=== PATIENT | male | born 2000 | race Caucasian/White ===

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

== ENCOUNTER 2019-03-08 17:24 | Emergency (ER) | payer OTHER ==
[2019-03-08] MEDS ORDERED: Sodium Chloride 0.9% 1000 ML 1,000 ML IV STA (17:59)
[2019-03-08] MEDS ORDERED: TORAdol 30 mg Injection IV ONE (17:59)
--- NOTE | 2019-03-08 18:04 | ERPHSYRPT ---
- History of Present Illness Historian: patient Exam Limitations: no limitations Patient Subjective Stated Complaint: pt here for abd pain for a couple days not , not not eating well, no fever, no n/v, states burning with urination Triage Nursing Assessment: pt alert, walked in, resp easy, skin w/d/p, abd soft, tender to center of abd, move all ext well, no edema Timing/Duration: day(s) (4) Activities at Onset: none Quality: burning, sharpness Abdominal Pain Onset Location: suprapubic Pain Radiation: no radiation Severity of Pain-Max: moderate Severity of Pain-Current: moderate Modifying Factors: Improves With: nothing Associated Symptoms: denies symptoms Previous symptoms: no prior history Hx Tetanus, Diphtheria Vaccination/Date Given: Yes Hx Influenza Vaccination/Date Given: No Hx Pneumococcal Vaccination/Date Given: No Immunizations Up to Date: Yes <TURNER FREED - Last Filed: 03/08/19 19:18> <ELIZABETH MCKNIGHT - Last Filed: 03/08/19 19:44> - History of Present Illness Time Seen by Provider: 03/08/19 17:57 Physician History: Pt started c/o suprapubic pain 4 days ago, difficulty urinating, denies bloody urine or fever, chills, no nausea, vomiting, diarrhea, denies penile discharge, but mentioned, that his left testicle was painful 2 days ago for about 15 minutes, denies any injury, swelling, or current pain. (TURNER FREED) Allergies/Adverse Reactions: No Known Drug Allergies Allergy (Unverified 04/25/17 04:24) Home Medications: Buspirone HCl mg PO 04/25/17 [History] Fluoxetine HCl [Prozac] mg PO 04/25/17 [History] - Review of Systems Constitutional: No Symptoms Ears, Nose, & Throat: No Symptoms Respiratory: No Symptoms Cardiac: No Symptoms Abdominal/Gastrointestinal: Abdominal Pain, No Nausea, No Vomiting, No Diarrhea Genitourinary Symptoms: Dysuria Musculoskeletal: No Symptoms Skin: No Symptoms Neurological: No Symptoms All Other Systems: Reviewed and Negative <TURNER FREED - Last Filed: 03/08/19 19:18> - Past Medical History Pertinent Past Medical History: No Psycho-Social History: Depression Other Medical History: depression - Past Surgical History Past Surgical History: No - Social History Smoking Status: Never smoker Exposure to second hand smoke: Yes Drug Use: marijuana Patient Lives Alone: No <TURNER FREED - Last Filed: 03/08/19 19:18> - Physical Exam General Appearance: no apparent distress Ears, Nose, Throat Exam: normal ENT inspection, moist mucous membranes Neck Exam: normal inspection, non-tender Respiratory Exam: normal breath sounds, lungs clear Cardiovascular Exam: regular rate/rhythm, normal heart sounds, normal peripheral pulses, No murmur Gastrointestinal/Abdomen Exam: soft, normal bowel sounds, tenderness (suprapubic , mild), No distention, No mass, No guarding, No ecchymosis, No pulsatile mass, No rebound, No hernia, No organomegaly Male Genitalia Exam: normal genitalia, testicular tenderness (mild, left scrotum above the testicle, no swelling, mass or redness, edema. No groin mass, tenderness, normal penis, no lesions.), No hernia Back Exam: normal inspection, No CVA tenderness, No vertebral tenderness Extremity Exam: normal inspection, No calf tenderness, No pedal edema Neurologic Exam: alert, oriented x 3, cooperative, normal mood/affect Skin Exam: normal color, warm, dry, No rash, No petechiae, No cyanosis, No diaphoresis Lymphatic Exam: No adenopathy SpO2 Interpretation: normal SpO2: 100 O2 Delivery: Room Air <TURNER FREED - Last Filed: 03/08/19 19:18> - Nursing Vital Signs Nursing Vital Signs: Initial Vital Signs Temperature 98.0 F 03/08/19 17:32 Pulse Rate 79 03/08/19 17:32 Respiratory Rate 16 03/08/19 17:32 Blood Pressure 132/98 03/08/19 17:32 O2 Sat by Pulse Oximetry 100 03/08/19 17:32 Pain Scale Pain Intensity 4 - Course Nursing assessment & vital signs reviewed: Yes <TURNER FREED - Last Filed: 03/08/19 19:18> Ordered Tests: Active Orders 24 hr Category Date Time Status IV Insertion STAT Care 03/08/19 17:59 Active TESTICLE [US] Stat Exams 03/08/19 18:10 Ordered CBC W DIFF Stat Lab 03/08/19 17:42 Completed CMP Stat Lab 03/08/19 17:42 Completed LIPASE Stat Lab 03/08/19 17:42 Completed Lactic Acid Stat Lab 03/08/19 18:24 Completed UA W/RFX UR CULTURE Stat Lab 03/08/19 18:25 Completed Urine Triage Profile Stat Lab 03/08/19 18:25 Completed Medication Summary Discontinued Medications Generic Name Dose Route Start Last Admin Trade Name Loan PRN Reason Stop Dose Admin Sodium Chloride 1,000 mls @ 999 mls/hr 03/08/19 17:59 03/08/19 19:08 Sodium Chloride 0.9% 1000 Ml IV 03/08/19 18:59 Infused .Q1H1M STA Infusion Sodium Chloride Confirm 03/08/19 18:05 Sodium Chloride 0.9% 1000 Ml Administered 03/08/19 18:06 Dose 1,000 mls @ ud .ROUTE .STK-MED ONE Ketorolac Tromethamine 30 mg 03/08/19 17:59 03/08/19 18:07 Toradol 30 Mg Injection IV 03/08/19 18:00 30 mg STAT ONE Administration Ketorolac Tromethamine Confirm 03/08/19 18:05 Toradol 30 Mg Injection Administered 03/08/19 18:06 Dose 30 mg .ROUTE .STK-MED ONE Lab/Rad Data: Laboratory Result Diagrams 03/08/19 17:42 03/08/19 17:42 Laboratory Results 03/08/19 03/08/19 03/08/19 Range/Units 18:25 18:25 18:24 WBC (4.0-10.5) K/mm3 RBC (4.1-5.6) M/mm3 Hgb (12.5-18.0) gm/dl Hct (42-50) % MCV (78-100) fl MCH (26-32) pg MCHC (32-36) g/dl RDW (11.5-14.0) % Plt Count (150-450) K/mm3 MPV (6-9.5) fl Gran % (36.0-66.0) % Eos # (Auto) (0-0.5) Absolute Lymphs (auto) (1.0-4.6) Absolute Monos (auto) (0.0-1.3) Lymphocytes % (24.0-44.0) % Monocytes % (0.0-12.0) % Eosinophils % (0.00-5.0) % Basophils % (0.0-0.4) % Absolute Granulocytes (1.4-6.9) Basophils # (0-0.4) Sodium (137-145) mmol/L Potassium (3.5-5.1) mmol/L Chloride (98-107) mmol/L Carbon Dioxide (22-30) mmol/L Anion Gap (5-15) MEQ/L BUN (9-20) mg/dL Creatinine (0.66-1.25) mg/dL Estimated GFR ML/MIN Glucose (74-106) mg/dL Lactic Acid 1.1 (0.4-2.0) Calcium (8.4-10.2) mg/dL Total Bilirubin (0.2-1.3) mg/dL AST (17-59) U/L ALT (0-50) U/L Alkaline Phosphatase (38-126) U/L Serum Total Protein (6.3-8.2) g/dL Albumin (3.5-5.0) g/dL Lipase (23-300) U/L Urine Color YELLOW (YELLOW) Urine Appearance CLEAR (CLEAR) Urine pH 8.0 (5-6) Ur Specific [place] 1.010 (1.005-1.025) Urine Protein NEGATIVE (Negative) Urine Ketones NEGATIVE (NEGATIVE) Urine Blood NEGATIVE (0-5) Matteo/ul Urine Nitrite NEGATIVE (NEGATIVE) Urine Bilirubin NEGATIVE (NEGATIVE) Urine Urobilinogen NEGATIVE (0-1) mg/dL Ur Leukocyte Esterase NEGATIVE (NEGATIVE) Urine WBC (Auto) NONE (0-5) /HPF Urine RBC (Auto) NONE (0-2) /HPF Urine Culture Reflexed NO (NO) Urine Glucose NEGATIVE (NEGATIVE) mg/dL Urine Opiates Level NEGATIVE (NEGATIVE) Ur Methadone NEGATIVE (NEGATIVE) Urine Barbiturates NEGATIVE (NEGATIVE) Ur Phencyclidine (PCP) NEGATIVE (NEGATIVE) Urine Amphetamine NEGATIVE (NEGATIVE) U Benzodiazepine Level NEGATIVE (NEGATIVE) Urine Cocaine NEGATIVE (NEGATIVE) Urine Marijuana (THC) POSITIVE (NEGATIVE) 03/08/19 03/08/19 Range/Units 17:42 17:42 WBC 6.5 (4.0-10.5) K/mm3 RBC 5.05 (4.1-5.6) M/mm3 Hgb 15.6 (12.5-18.0) gm/dl Hct 43.4 (42-50) % MCV 85.9 (78-100) fl MCH 30.9 (26-32) pg MCHC 35.9 (32-36) g/dl RDW 12.7 (11.5-14.0) % Plt Count 220 (150-450) K/mm3 MPV 10.2 H (6-9.5) fl Gran % 48.0 (36.0-66.0) % Eos # (Auto) 0.20 (0-0.5) Absolute Lymphs (auto) 2.39 (1.0-4.6) Absolute Monos (auto) 0.78 (0.0-1.3) Lymphocytes % 36.7 (24.0-44.0) % Monocytes % 12.0 (0.0-12.0) % Eosinophils % 3.1 (0.00-5.0) % Basophils % 0.2 (0.0-0.4) % Absolute Granulocytes 3.13 (1.4-6.9) Basophils # 0.01 (0-0.4) Sodium 142 (137-145) mmol/L Potassium 4.0 (3.5-5.1) mmol/L Chloride 105 (98-107) mmol/L Carbon Dioxide 27 (22-30) mmol/L Anion Gap 14.8 (5-15) MEQ/L BUN 15 (9-20) mg/dL Creatinine 0.76 (0.66-1.25) mg/dL Estimated GFR > 60.0 ML/MIN Glucose 80 (74-106) mg/dL Lactic Acid (0.4-2.0) Calcium 9.9 (8.4-10.2) mg/dL Total Bilirubin 0.60 (0.2-1.3) mg/dL AST 18 (17-59) U/L ALT 12 (0-50) U/L Alkaline Phosphatase 65 (38-126) U/L Serum Total Protein 7.6 (6.3-8.2) g/dL Albumin 4.9 (3.5-5.0) g/dL Lipase 27 (23-300) U/L Urine Color (YELLOW) Urine Appearance (CLEAR) Urine pH (5-6) Ur Specific [place] (1.005-1.025) Urine Protein (Negative) Urine Ketones (NEGATIVE) Urine Blood (0-5) Matteo/ul Urine Nitrite (NEGATIVE) Urine Bilirubin (NEGATIVE) Urine Urobilinogen (0-1) mg/dL Ur Leukocyte Esterase (NEGATIVE) Urine WBC (Auto) (0-5) /HPF Urine RBC (Auto) (0-2) /HPF Urine Culture Reflexed (NO) Urine Glucose (NEGATIVE) mg/dL Urine Opiates Level (NEGATIVE) Ur Methadone (NEGATIVE) Urine Barbiturates (NEGATIVE) Ur Phencyclidine (PCP) (NEGATIVE) Urine Amphetamine (NEGATIVE) U Benzodiazepine Level (NEGATIVE) Urine Cocaine (NEGATIVE) Urine Marijuana (THC) (NEGATIVE) - Progress Progress: improved <TURNER FREED - Last Filed: 03/08/19 19:18> - Progress Counseled pt/family regarding: lab results, diagnosis, need for follow-up, rad results <ELIZABETH MCKNIGHT - Last Filed: 03/08/19 19:44> - Progress Progress Note: 03/08/19 19:18 Case was discussed with DR Mcknight, he will follow up on his US results. ( TURNER FREED) 03/08/19 19:40 us bilat testicles/scrotum-nl cord flow. no tumors and left side scrotal fluid. per u/s tech. dr. freed stated pt not in need of ct scan abd/pelvis based on pt complaint, physical findings and results of studies performed. i agree. on re examination at time of discharge. pts abd exam is benign (ELIZABETH CMKNIGHT ) <TURNER FREED - Last Filed: 03/08/19 19:18> - Departure Departure Disposition: Home Critical Care Time: No <ELIZABETH MCKNIGHT - Last Filed: 03/08/19 19:44> - Departure Clinical Impression: Epididymitis Condition: Stable Referrals: ANGELA ZHOU [ACTIVE STAFF] - Additional Instructions: use ibuprofen 600mg orally 3 times daily with food. follow up with primary doctor or urologist for persistent symptoms. Prescriptions: Ciprofloxacin [Cipro 500 MG] 500 mg PO BID #14 tablet
[2019-03-08] MEDS ORDERED: TORAdol 30 mg Injection ONE (18:05)
[2019-03-08] MEDS ORDERED: Sodium Chloride 0.9% 1000 ML 1,000 ML ONE (18:05)
[2019-03-08 18:13] LABS: BASOPHIL % 0.2 % (0.0-0.4); Basophil (Absolute #) 0.01 (0-0.4); Eosinophil % 3.1 % (0.00-5.0); Granulocyte Absolute (ANC) 3.13 (1.4-6.9); Hematocrit 43.4 % (42-50); Hemoglobin 15.6 gm/dl (12.5-18.0); Lymphocyte (Absolute #) 2.39 (1.0-4.6); Lymphocytes % 36.7 % (24.0-44.0); Mean Cell Volume 85.9 fl (78-100); Mean Corpuscular Hemoglobin 30.9 pg (26-32); Mean Corpuscular Hgb Concent. 35.9 g/dl (32-36); Mean Platelet Volume 10.2 fl (6-9.5); Monocyte (Absolute #) 0.78 (0.0-1.3); Platelet Count 220 K/mm3 (150-450); Red Blood Count 5.05 M/mm3 (4.1-5.6); Red Cell Distribution Width 12.7 % (11.5-14.0); White Blood Count 6.5 K/mm3 (4.0-10.5)
[2019-03-08 18:28] LABS: ALBUMIN 4.9 g/dL (3.5-5.0); ALKALINE PHOSPHATASE 65 U/L (38-126); ANION GAP 14.8 MEQ/L (5-15); BLOOD UREA NITROGEN 15 mg/dL (9-20); CHLORIDE 105 mmol/L (98-107); Calcium 9.9 mg/dL (8.4-10.2); Carbon Dioxide 27 mmol/L (22-30); Creatinine 1 0.76 mg/dL (0.66-1.25); Glucose 80 mg/dL (74-106); LIPASE 27 U/L (23-300); SGOT/AST 18 U/L (17-59); SGPT/ALT 12 U/L (0-50); SODIUM 142 mmol/L (137-145); Total Protein 7.6 g/dL (6.3-8.2)
[2019-03-08 18:52] LABS: Amphetamine,Urine NEGATIVE (NEGATIVE); Barbiturate,Urine NEGATIVE (NEGATIVE); Benzodiazepine,Urine NEGATIVE (NEGATIVE); Cocaine,Urine NEGATIVE (NEGATIVE); Methadone,Urine NEGATIVE (NEGATIVE); Opiate,Urine NEGATIVE (NEGATIVE); PCP,Urine NEGATIVE (NEGATIVE); THC,Urine POSITIVE (NEGATIVE)
[2019-03-08 19:05] VITALS: BP 125/84
[2019-03-08 19:25] LABS: Appearance CLEAR (CLEAR); Bilirubin NEGATIVE (NEGATIVE); Blood NEGATIVE Ery/ul (0-5); Glucose NEGATIVE (NEGATIVE); Ketones NEGATIVE (NEGATIVE); Leukocyte Esterase NEGATIVE (NEGATIVE); Nitrite NEGATIVE (NEGATIVE); Protein,Urine Dip NEGATIVE (Negative); Urobilinogen NEGATIVE mg/dL (0-1)
[2019-03-08] MEDS ORDERED: Cipro 500 MG PO ONE (19:39)
[2019-03-08] MEDS ORDERED: Cipro 500 MG ONE (19:42)
[2019-03-08 20:05] VITALS: PULSE 73; O2SAT 98
[2019-03-08] MEDS ORDERED: BENADRYL 25 MG CAPSULE PO ONE (20:16)
[2019-03-08] MEDS ORDERED: BENADRYL 25 MG CAPSULE ONE (20:29)
--- NOTE | 2019-03-09 09:47 | XRAY ---
Indication: Left testicle pain. Two-dimensional testicular sonogram performed. Comparison: None Right testicle measures 3.1 x 1.7 x 2.9 cm and the left measures 4.0 x 1.9 x 2.9 cm. Normal color perfusion bilaterally. Right testicle homogeneous in echogenicity. Left testicle demonstrates a curvilinear focus of hypoechogenicity posteriorly measuring at least 0.5 x 2.0 x 0.2 cm with color Doppler flow, possible orchitis in the right clinical setting. Malignancy not completely excluded. Left and right epididymis sonographically unremarkable. No suspicious extratesticular mass or large hydrocele. Impression: 1. Negative for testicular torsion. 2. Left testicle curvilinear hypoechogenicity, possible orchitis. Malignancy not completely excluded. Comment: Preliminary report was given.
== END 2019-03-08 20:06 | disposition home or self-care (01) ==
LOC: ED 17:24
DX: N45.1 Epididymitis (principal)
CPT/HCPCS: 36415; 76870; 80053; 80307; 81001; 83605; 83690; 85025; 96360; 96374; 99284; J1885; A9270-GY